=== PATIENT | female | born 1960 | race Caucasian/White ===

== ENCOUNTER → 2017-03-18 | Outpatient (CLI) | payer BC ==
[2017-03-20 15:57] LABS: HPV Genotype 16 Not Detected (NOTDET); HPV Genotype 18 Not Detected (NOTDET)
[2017-03-25 10:55] LABS: HPV High Risk Other Not Detected (NOTDET)
== END ==
LOC: LAB SHORT 19:28
PROVIDERS: Nurse Practitioner Primary Care
DX: Z00.00 Encounter for general adult medical examination without abnormal findings (principal)
CPT/HCPCS: 87491; 87591; 87624; G0123